=== PATIENT | female | born 2000 | race Asian ===

== ENCOUNTER 2021-11-30 01:55 | Emergency (ER) | payer BC, SELFPAY ==
--- NOTE | 2021-11-30 02:04 | ED_ITS ---
HPI - Ear Problem General Stated complaint: LEFT SIDED EAR PAIN Time Seen by Provider: 11/30/21 02:02 Source: patient Mode of arrival: ambulatory Limitations: no limitations History of Present Illness MD Complaint: ear pain and decreased hearing Location: left ear Duration: constant Severity: moderate Relieving factors: nothing Exacerbating factors: chewing and palpation Discharge from ear: no Associated symptoms ear: decreased hearing, external ear tenderness and ear swelling Treatment prior to arrival: oral analgesic Related Data Previous Rx's Medication Instructions Recorded amoxicillin 875 mg-potassium 1 tab PO BID #20 tab 11/30/21 clavulanate 125 mg tablet (Augmentin) ofloxacin 0.3 % ear drops 10 drp OTIC (EAR) LEFT DAILY 7 11/30/21 Days #5 ml Allergies Allergy/AdvReac Type Severity Reaction Status Date / Time No Known Allergies Allergy Verified 11/30/21 02:02 Review of Systems Verdana 4l Review of Systems: Verdana 4d Verdana 4d Constitutional : No Fever, No Chills ENT/Mouth : No sore throat, No Rhinorrhea, pos ear pain, pos decreased hearing Eyes: No Eye Pain, No Swelling, No Redness Cardiovascular : No Chest Pain, No SOB Respiratory : No Cough, No Sputum GastrointestinalGastrointestinal : No Nausea, No Vomiting Musculoskeletal : No joint pain, No Myalgias Skin : No Skin Lesions, No rash Neuro : No Weakness, No Numbness, No Dizziness, No Headache PMFSH Past Medical History Medical History No known health problems Social History Social History (Updated 11/30/21 @ 02:10 by Nanette Adam DO) Patient Tobacco Use Status: Never used Tobacco Patient : No Physical Exam Verdana 4l Vital Signs: Verdana 4d Verdana 4d Appearance: Alert. Oriented X3. No acute distress. Eyes: Pupils equal, round and reactive to light. ENT: Pharynx normal. L TM bulging loss of landmarks, abnormal loss of light reflex, effusion seen no perforation, moderate swelling of canal no mastoid ttp no swelling in front of or behing ear no swel ling of pinna Neck: Normal inspection. Neck supple. CVS: Normal heart rate and rhythm. Pulses normal. Respiratory: No respiratory distress. Breath sounds normal. Abdomen: Soft and nontender. Skin: Skin warm and dry. Normal skin color. Normal skin turgor. Extremities: No lower extremity edema. No calf ttp Neuro: Oriented X 3. No motor deficit. No sensory deficit. MDM - Ear MDM Narrative Medical decision making narrative: 21 yo female healthy here with L ear pain no hx of DM here with L AOM no rupture also with external otitis - no mastoid ttp no extension onto auricle at this time augemtin dexamethasone for swelling and ofloxacin ordered, PO tylenol for pain. Referral to urgent care center. Discharge Plan Discharge Clinical Impression: Otitis externa Qualifiers: Otitis externa type: diffuse Chronicity: acute Laterality: left Qualified Code(s): H60.312 - Diffuse otitis externa, left ear Otitis media Qualifiers: Otitis media type: suppurative Chronicity: acute Laterality: left Recurrence: non-recurrent Spontaneous tympanic membrane rupture: without spontaneous rupture Qualified Code(s): H66.002 - Acute suppurative otitis media without spontaneous rupture of ear drum, left ear Patient Disposition: Home, Self-Care Instructions: Otitis Externa (ED), How to Use Ear Drops (ED), Ear Infection (ED) Additional Instructions: return to ED for any worsening symptoms or concerns you need to pick up and delivery driver the ear drops as soon as possible take a probiotic with your antibiotic [facility] Prescriptions: New amoxicillin-pot clavulanate [Augmentin] 875-125 mg tablet 1 tab PO BID Qty: 20 0RF ofloxacin 0.3 % drops 10 drp otic (ear) left DAILY 7 Days Qty: 5 10RF Stand Alone Forms: Work/School Release
[2021-11-30 02:05] VITALS: BP 139/91; PULSE 70; RESP 16; TEMP 37.2; BMI 21.3
[2021-11-30] MEDS: Amoxicillin/Potassium Clav 875 MG TABLET PO (02:16)
[2021-11-30] MEDS: Acetaminophen 325 MG TABLET 650 MG PO (02:16)
[2021-11-30] MEDS: dexAMETHasone 4 MG TABLET PO (02:17)
== END 2021-11-30 02:50 | disposition home or self-care (01) ==
LOC: HO.ED 02:20
PROVIDERS: Emergency Provider Emergency Medicine
DX: H66.002 Acute suppurative otitis media without spontaneous rupture of ear drum, left ear (principal); H60.312 Diffuse otitis externa, left ear; Z79.899 Other long term (current) drug therapy
CPT/HCPCS: 99283; J8540